=== PATIENT | male | born 1970 | race Caucasian/White ===

== ENCOUNTER 2022-03-10 09:37 | Inpatient (IN) ==
[2022-03-10] MEDS ORDERED: Heparin - STEMI 5,000 UNITS/ML 1 ml VIAL IV ONE ×2 (09:43→09:47)
[2022-03-10] MEDS ORDERED: Lactated Ringers 1000 ml BAG IV.FLUID IV ONE (09:54)
[2022-03-10 10:09] LABS: Activated Partial Thrombo Time 22.4 seconds (26.0-38.0); INR 1.05 (0.88-1.18)
[2022-03-10] MEDS ORDERED: fentaNYL 100 mcg/2 ml 50 MCG/ML VIAL ONE (10:11)
[2022-03-10] MEDS ORDERED: Heparin 1,000 UNIT/ML 10 ml (10,000 UNITS) CATHLAB/DIALYSIS ONE ×2 (10:11→11:23)
[2022-03-10] MEDS ORDERED: nitroGLYCERIN DRIP 25,000 MCG/250 ML BTL ONE (10:11)
[2022-03-10] MEDS ORDERED: Heparin 2 UNITS/ML 1000 mls 2,000 ML IV ONE (10:11)
[2022-03-10] MEDS ORDERED: Midazolam 5 mg/5 ml VIAL 1 mg/ml 5 ml VIAL (5 mg) ONE (10:11)
[2022-03-10] MEDS ORDERED: Lidocaine 1% MPF 5 ML VIAL ONE (10:12)
[2022-03-10] MEDS ORDERED: niCARdipine 0.1MG/ML IVPREMIX 20 MG/200 ML BAG IV ONE (10:12)
[2022-03-10] MEDS ORDERED: Atropine 1 MG/ML INJ 1 ML VIAL ONE (10:19)
[2022-03-10 10:21] LABS: High Sens Troponin Baseline 4 pg/mL (<20)
[2022-03-10] MEDS ORDERED: Iohexol 350 (CONTRAST) 100 ML PAK IV ONE ×3 (10:23→11:33)
[2022-03-10] MEDS ORDERED: Atropine 0.1 MG/ML 10 ml SYR (1 mg) ONE (10:26)
[2022-03-10 10:30] LABS: ABS Basophils 0.1 10^3/ul (0-0.2); ABS Eosinophils 0.2 10^3/ul (0-0.6); ABS Lymphocytes 2.7 10^3/ul (1.0-4.8); ABS Monocytes 0.8 10^3/ul (0-0.8); ABS Neutrophils 11.3 10^3/ul (1.5-7.7); Eosinophil % 1.5 %; Hematocrit 45 % (42-52); Hemoglobin 14.9 g/dL (14.0-18.0); Lymphocyte % 18.2 %; Mean Corpuscular HGB Conc 33 g/dL (31-36); Mean Corpuscular Hemoglobin 31 pg (27-31); Mean Corpuscular Volume 92 fL (80-94); Mean Platelet Volume 7.9 fL (7.4-10.4); Platelet Count 301 10^3/uL (150-450); Red Blood Count 4.88 10^6 /uL (4.18-5.48); Red Cell Distribution Width 12 % (10-15); White Blood Count 15.1 10^3/uL (3.5-10.8)
[2022-03-10 10:37] LABS: Albumin 4.7 g/dL (3.2-5.2); CO2 Carbon Dioxide 24 mmol/L (22-32); Calcium 9.7 mg/dL (8.6-10.3); Chloride 104 mmol/L (101-111); Sodium 137 mmol/L (135-145)
[2022-03-10 10:43] LABS: ALT 76 U/L (7-52); Albumin/Globulin Ratio 2.2 (1-3); Alkaline Phosphatase 58 U/L (35-149); Anion Gap 9 mmol/L (2-11); Blood Urea Nitrogen 16 mg/dL (6-24); Globulin 2.1 g/dL (2-4); Glucose 179 mg/dL (70-100); LDL Cholesterol Direct 115 mg/dL; Total Protein 6.8 g/dL (6.4-8.9); eGFR CKD-EPI 63.3 (>60)
[2022-03-10] MEDS ORDERED: Phenylephrine 40 mcg/mL 10mL (400mcg) SYRINGE ONE (10:58)
[2022-03-10] MEDS ORDERED: Eptifibatide IV (Load dose) 2 MG/ML 10 ml VIAL ONE ×3 (11:02→11:31)
[2022-03-10] MEDS ORDERED: Ondansetron 4 mg VIAL 2 MG/ML 2 ml VIAL IV PRN (11:46)
[2022-03-10 19:19] LABS: Magnesium 1.9 mg/dL (1.9-2.7); Potassium Redraw 3.8 mmol/L (3.5-5.0)
[2022-03-11 05:12] LABS: ABS Eosinophils 0.1 10^3/ul (0-0.6); ABS Lymphocytes 2.4 10^3/ul (1.0-4.8); ABS Neutrophils 8.8 10^3/ul (1.5-7.7); Eosinophil % 1.1 %; Hematocrit 35 % (42-52); Hemoglobin 12.1 g/dL (14.0-18.0); Lymphocyte % 19.4 %; Mean Corpuscular HGB Conc 35 g/dL (31-36); Mean Corpuscular Hemoglobin 31 pg (27-31); Mean Corpuscular Volume 90 fL (80-94); Mean Platelet Volume 7.7 fL (7.4-10.4); Platelet Count 227 10^3/uL (150-450); Red Blood Count 3.89 10^6 /uL (4.18-5.48); Red Cell Distribution Width 12 % (10-15); White Blood Count 12.5 10^3/uL (3.5-10.8)
[2022-03-11 09:09] LABS: Albumin 3.9 g/dL (3.2-5.2); Albumin/Globulin Ratio 2.4 (1-3); Calcium 8.9 mg/dL (8.6-10.3); Globulin 1.6 g/dL (2-4); HDL Cholesterol 30.6 mg/dL; Potassium 3.8 mmol/L (3.5-5.0); Total Bilirubin 0.7 mg/dL (0.2-1.0); Total Protein 5.5 g/dL (6.4-8.9); eGFR CKD-EPI 104.7 (>60)
[2022-03-11] MEDS ORDERED: Potassium Chlor 20 meq TAB.ER PO ONE (09:19)
[2022-03-12 06:25] LABS: Hematocrit 41 % (42-52); Hemoglobin 13.8 g/dL (14.0-18.0); Mean Corpuscular HGB Conc 34 g/dL (31-36); Mean Corpuscular Hemoglobin 31 pg (27-31); Mean Corpuscular Volume 91 fL (80-94); Mean Platelet Volume 8.2 fL (7.4-10.4); Platelet Count 226 10^3/uL (150-450); Red Blood Count 4.45 10^6 /uL (4.18-5.48); Red Cell Distribution Width 12 % (10-15); White Blood Count 10.1 10^3/uL (3.5-10.8)
[2022-03-12 06:48] LABS: Magnesium 2.2 mg/dL (1.9-2.7); Potassium 4.4 mmol/L (3.5-5.0); eGFR CKD-EPI 103.2 (>60)
[2022-03-12 10:35] VITALS: BP 107/79
== END 2022-03-12 11:50 | disposition home or self-care (01) | DRG 174 ==
LOC: ED 09:37 → CHICATH 10:27 → ICU 12:16 → OBSVTOIN 12:16 → INTOOBSV 12:16
PROVIDERS: ADMIT Internal Medicine; ATTEND Internal Medicine